=== PATIENT | male | born 1945 | race Caucasian/White ===

== ENCOUNTER 2018-04-06 11:53 | Emergency (ER) | payer OTHER, SELFPAY ==
[2018-04-06 12:03] VITALS: BP 139/75; PULSE 75; RESP 17; TEMP 36.9; O2SAT 99
--- NOTE | 2018-04-06 12:22 | ED_ITS ---
HPI - Extremity Injury (Lower) <DRAGAN Hi-BC - Last Filed: 04/06/18 13:03> General Chief Complaint: Extremity Injury, Lower Stated Complaint: INFECTED TOE RIGHT FOOT Time Seen by Provider: 04/06/18 12:05 Source: patient Mode of arrival: ambulatory Limitations: no limitations History of Present Illness HPI Narrative: Patient is a 72-year-old male former smoker who presents with a chief complaint of infection of his right 2nd toe. He states he has a history of cellulitis at that location, gets antibiotics it clears up about 3 days. He has a history of blood sugar problems but denies any diabetes. He denies any fevers, nausea, vomiting, diarrhea. He denies any trauma to the area, but states that is where this toe digs into his shoe upon ambulation. Related Data Home Medications Medication Instructions Recorded Confirmed CA PANTOTHENATE/FOLIC ACID/VIT 1 tab PO QDAY #0 tab 11/19/12 (MULTIVITAMIN) PRAZOSIN HCL (PRAZOSIN) 5 mg PO TID #0 11/19/12 sertraline 100 mg PO QDAY #0 tab 11/19/12 zolpidem 10 mg PO HS #0 tab 11/19/12 Previous Rx's Medication Instructions Recorded cephalexin 500 mg PO QID #40 cap 04/06/18 Allergies Allergy/AdvReac Type Severity Reaction Status Date / Time No Known Drug Allergies Allergy Verified 04/06/18 12:29 Review of Systems <DRAGAN Hi-BC - Last Filed: 04/06/18 13:03> Review of Systems GENERAL: Denies chills, fatigue, malaise, fever, sweats. HEENT: Denies sinus pain, ear pain, sore throat, difficulty swallowing, dizziness. RESPIRATORY: Denies dyspnea, cough, wheezing, hemoptysis, sputum. CARDIOVASCULAR: Denies chest pain, palpitations, orthopnea, edema, GASTROINTESTINAL: Denies nausea, vomiting, abdominal pain, diarrhea, constipation, melena. : Denies dysuria, frequency, incontinence, hematuria, urinary retention. MUSCULOSKELETAL: denies weakness, joint pain, or bony pain SKIN: See HPI NEUROLOGIC: Denies weakness, headache, numbness, change in speech, confusion, seizures, incoordination. PSYCHIATRIC: No concerning psychosocial issues. 12 point review of systems is negative except for those stated above Exam <CORONA Hi - Last Filed: 04/06/18 13:03> Narrative Exam Narrative: GENERAL: This is a well-nourished, well-developed patient, no acute distress HEAD: Atraumatic. Normocephalic. No temporal or scalp tenderness. EYES: Pupils equal round and reactive. Extraocular motions intact. No scleral icterus. No injection or drainage. ENT: Nose without bleeding, purulent drainage or septal hematoma. Throat without erythema, tonsillar hypertrophy or exudate. Uvula midline. Airway patent. NECK: Trachea midline. No JVD or lymphadenopathy. Supple, nontender, no meningeal signs. CARDIOVASCULAR: Regular rate and rhythm without murmurs, gallops, or rubs. RESPIRATORY: Clear to auscultation. Breath sounds equal bilaterally. No wheezes , rales, or rhonchi. GASTROINTESTINAL: Abdomen soft, non-tender, nondistended. No hepato-splenomegaly , or palpable masses. No guarding. EXTREMITIES: No clubbing, cyanosis, or edema. No joint tenderness, effusion, or edema noted. BACK: Nontender without deformity or crepitance. No flank tenderness. NEURO: AOx3. SKIN: erythema throughout 2nd digit right foot. No noted injury abrasion laceration to 2nd toe right foot. Nails intact. Diffuse erythema noted on anterior aspect foot Approximately 4 cm beyond base of toe. Capillary refill is intact. Pedal pulses intact right foot Initial Vital Signs Initial Vital Signs: Vital Signs Temperature 98.4 F 04/06/18 12:03 Pulse Rate 75 04/06/18 12:03 Respiratory Rate 17 04/06/18 12:03 Blood Pressure 139/75 04/06/18 12:03 Pulse Oximetry 99 04/06/18 12:03 <Fred Workman DO - Last Filed: 04/06/18 13:24> Initial Vital Signs Initial Vital Signs: Vital Signs Temperature 98.4 F 04/06/18 12:03 Pulse Rate 75 04/06/18 12:03 Respiratory Rate 17 04/06/18 12:03 Blood Pressure 139/75 04/06/18 12:03 Pulse Oximetry 99 04/06/18 12:03 Course <CORONA Hi - Last Filed: 04/06/18 13:03> Vital Signs - 8 hr 04/06/18 12:03 Temperature 98.4 F Pulse Rate 75 Respiratory Rate 17 Blood Pressure 139/75 Pulse Oximetry 99 <Fred Workman DO - Last Filed: 04/06/18 13:24> Vital Signs - 8 hr 04/06/18 12:03 Temperature 98.4 F Pulse Rate 75 Respiratory Rate 17 Blood Pressure 139/75 Pulse Oximetry 99 MDM - Extremity Injury (Lower) <DRAGAN Hi-BC - Last Filed: 04/06/18 13:03> MDM Narrative Medical decision making narrative: Patient is a 72-year-old male who presents with chief complaint of infected toe on his right foot. His exam is consistent with cellulitis given the erythema as well as his history. I will initiate treatment with cephalexin. I discussed at length return precautions of fever, nausea vomiting diarrhea or spreading erythema after a few doses of the antibiotic. Patient has no questions or concerns upon discharge. Discharge Plan Departure Patient Disposition: Home Clinical Impression: Cellulitis Discharge Date/Time: 04/06/18 12:57 Interventions: ED Discharge Assessment Last Done: 04/06/18 12:57 Instructions: DI for Cellulitis -- Adult Activity Restrictions/Additional Instructions: I am starting you on an antibiotic for the infection in your toe. Please monitor for spreading redness, fever vomiting diarrhea or signs of systemic illness. Please rest your foot. Please come back to emergency department for any acute concerns and follow up with primary care provider need be. Prescriptions: New cephalexin 500 mg capsule 500 mg PO QID Qty: 40 RF: 0 No Action PRAZOSIN HCL (PRAZOSIN) 5 mg PO TID Qty: 0 RF: 0 sertraline 100 MG tablet 100 mg PO QDAY Qty: 0 RF: 0 zolpidem 10 MG tablet 10 mg PO HS Qty: 0 RF: 0 CA PANTOTHENATE/FOLIC ACID/VIT (MULTIVITAMIN) 1 tab PO QDAY Qty: 0 RF: 0 Referrals: Daquan Temple [Primary Care Provider] - <Fred Workman DO - Last Filed: 04/06/18 13:24> Cosign ED Attending Cosignature Attestation: I was available for consultation during this patient's emergency department encounter
== END 2018-04-06 12:57 | disposition home or self-care (01) ==
PROVIDERS: Emergency Provider Nurse Practitioner Family; Family Provider Internal Medicine; PCP Internal Medicine
DX: L03.031 Cellulitis of right toe (principal)
CPT/HCPCS: 99282

== ENCOUNTER → 2019-06-06 12:11 | Outpatient (CLI) | payer OTHER, SELFPAY ==
[2019-06-06 13:01] LABS: Add Manual Diff / Slide Review NO; Basophils Absolute Auto 100 /uL (0-100); Basophils Percent Auto 1.1 % (0-2); Eosinophils Absolute Auto 300 /uL (0-450); Eosinophils Percent Auto 3.7 % (2-4); Hematocrit 44.2 % (41-53); Hemoglobin 14.9 g/dL (13.5-17.5); Lymphocytes Absolute Auto 1900 /uL (1100-4500); Lymphocytes Percent Auto 21.3 % (25-40); Mean Corpuscular HGB Conc 33.7 % (30-36); Mean Corpuscular Volume 88.9 fL (80-100); Monocytes Absolute Auto 800 /uL (0-900); Monocytes Percent Auto 8.9 % (3-14); Neutrophils Absolute Auto 5600 /uL (1500-7000); Platelet Count 174 X10^3/uL (150-400); Red Blood Cell Count 4.97 X10^6/uL (4.5-5.9); Red Cell Distribution Width 13.9 % (11.6-14.8); White Blood Cell Count 8.7 X10^3/uL (4.5-11.0)
[2019-06-06 13:09] LABS: Hemoglobin A1C% w Est Avg Glu 6.1 % (4.0-6.0)
[2019-06-06 13:16] LABS: Alanine Aminotransferase 29 IU/L (<50); Albumin 4.6 g/dL (3.5-5.0); Albumin Globulin Ratio 1.5 (1.0-2.8); Alkaline Phosphatase 55 U/L (38-126); Aspartate Aminotransferase 33 IU/L (17-59); Blood Urea Nitrogen 15 mg/dL (9-20); Carbon Dioxide 27 mmol/L (22-32); Chloride 104 mmol/L (98-107); Cholesterol 184 mg/dL (140-199); Estimated Glomerular Filt Rate > 60.0 mL/min (>60); Glucose 165 mg/dL (80-110); HDL Cholesterol 35 mg/dL (40-60); HEMOLYSIS 15 (0-50); LDL Cholesterol Calculated 110 mg/dL (<100); Potassium 4.7 mmol/L (3.4-5.1); Sodium 141 mmol/L (137-145); Total Protein 7.6 g/dL (6.3-8.2); Triglycerides 196 mg/dL (35-150)
== END ==
PROVIDERS: Family Provider Internal Medicine; Referring Provider Family Medicine; Visit Provider Family Medicine
DX: Z76.89 Persons encountering health services in other specified circumstances (principal)
CPT/HCPCS: 36415; 80053; 80061; 83036; 85025

== ENCOUNTER 2020-06-15 11:58 | Emergency (ER) | payer OTHER, SELFPAY ==
[2020-06-15] VITALS (7 sets, daily range): BP systolic 109–131; BP diastolic 57–71; PULSE 91–104; RESP 16–28; TEMP 36.9; O2SAT 89–97; BMI 27.9
--- NOTE | 2020-06-15 12:36 | ED_ITS ---
HPI - Arrhythmia/Palpitations General Chief Complaint: Arrhythmia/Palpitations Stated Complaint: heart rhythm is going crazy Time Seen by Provider: 06/15/20 12:18 Source: patient Mode of arrival: Ambulatory Limitations: no limitations History of Present Illness HPI narrative: Patient is a 74-year-old male here for evaluation of what he thinks his palpitations. He also states that he has not been able to eat or dr ink very much over the past several weeks/month. He states he is feeling full early. Does feel like his abdomen is distended. He states that all the symptoms started after he received his 2nd COVID vaccine. He was told that he could potentially feel abnormal afterwards so he ?waited some time ?and then called his primary doctor yesterday who told him to come to the emergency department for evaluation. He is not having any chest pain but states that he does feel like his heart is beating fast. No urinary symptoms. Related Data Home Medications Medication Instructions Recorded Confirmed CA PANTOTHENATE/FOLIC ACID/VIT 1 tab PO QDAY #0 tab 11/19/12 (MULTIVITAMIN) PRAZOSIN HCL (PRAZOSIN) 5 mg PO TID #0 11/19/12 sertraline 100 mg PO QDAY #0 tab 11/19/12 zolpidem 10 mg PO HS #0 tab 11/19/12 Previous Rx's Medication Instructions Recorded cephalexin 500 mg PO QID #40 cap 04/06/18 Allergies Allergy/AdvReac Type Severity Reaction Status Date / Time No Known Drug Allergies Allergy Verified 06/15/20 12:14 Review of Systems Constitutional Constitutional: Denies fever(s) and Denies headache(s) ENT Ears, Nose, Mouth, and Throat: Denies vertigo, Denies dizziness and Denies headache(s) Cardiovascular Cardiovascular: Denies chest pain, Denies syncope, Reports rapid heart rate, Reports irregular heart rhythm, Denies lightheadedness and Denies dyspnea Respiratory Respiratory: Denies cough and Denies dyspnea Gastrointestinal Gastrointestinal: Reports abdominal pain, Denies change in bowel habits, Reports nausea and Denies vomiting Genitourinary Genitourinary: Denies dysuria Genitourinary: Denies dysuria Musculoskeletal Musculoskeletal: Denies arthralgias and Denies myalgias Integumentary/Breasts Skin/Breast: Denies rash Neurologic Neurologic: Denies behavioral changes, Denies vertigo, Denies dizziness, Denies syncope and Denies headache(s) Psychiatric Psychiatric: Reports anxiety and Denies behavioral changes Hematologic/Lymphatic On Anticoagulants: No Allergic/Immunologic Allergic/Immunologic: Denies urticaria Patient History Medical History PTSD (post-traumatic stress disorder) Social History Smoking Status: Never smoker Smoking Status: Never smoker alcohol intake frequency: other Substance Use Type: does not use Exam Initial Vital Signs Initial Vital Signs: Vital Signs Temperature 98.4 F 06/15/20 12:10 Pulse Rate 100 H 06/15/20 12:10 Respiratory Rate 16 06/15/20 12:10 Blood Pressure 131/71 06/15/20 12:10 Pulse Oximetry 96 06/15/20 12:10 Const General: cooperative and comfortable Limitations: mental status not altered HENMT Head: normal to inspection and normocephalic Resp Effort & Inspection: normal respiratory effort Auscultation: clear to auscultation bilaterally Cardio Rate: regular rate Rhythm: regular rhythm GI Inspection: distended Palpation: guarding and tender Skin Lesions: no lesions Rashes: no rashes Neuro General: patient alert and patient awake Cognition: normal cognition Speech: speech normal Extrem General: normal to inspection and capillary refill normal Psych Appearance: grossly normal Course Orders Ordered: ED Orders 06/15/20 12:18 EKG-12 Lead Stat 06/15/20 12:38 Complete Blood Count AUTO DIFF Stat Comprehensive Metabolic Panel Stat Lipase Stat 06/15/20 13:21 CT abdomen pelvis w con Stat Discontinued Medications Sodium Chloride (Normal Saline 0.9%) 1,000 mls @ 1,000 mls/hr IV BOLUS ONE Stop: 06/15/20 13:35 Last Infusion: 06/15/20 14:05 Dose: 0 mls/hr Documented by: Admin: 06/15/20 12:46 Dose: 1,000 mls/hr Documented by: SHAKIRA Vital Signs Vital signs: Vital Signs - 8 hr 06/15/20 12:10 06/15/20 12:11 06/15/20 12:30 Temperature 98.4 F Pulse Rate 100 H 104 H 93 H Respiratory Rate 16 18 Blood Pressure 131/71 131/71 120/57 L Pulse Oximetry 96 97 89 L 06/15/20 13:00 06/15/20 13:23 06/15/20 13:30 Temperature Pulse Rate 91 H 92 H 92 H Respiratory Rate 16 20 19 Blood Pressure 109/61 109/63 114/62 Pulse Oximetry 92 97 92 06/15/20 14:00 Temperature Pulse Rate 93 H Respiratory Rate 28 H Blood Pressure 115/62 Pulse Oximetry 92 MDM - Arrhythmia/Palpitations Lab Data Attestation: I reviewed the patient's lab results. Result diagrams: 06/15/20 12:38 06/15/20 12:38 Labs: Lab Results 06/15/20 06/15/20 Range/Units 12:38 12:38 WBC 11.0 (4.5-11.0) X10^3/uL RBC 4.84 (4.5-5.9) X10^6/uL Hgb 14.3 (13.5-17.5) g/dL Hct 43.5 (41-53) % MCV 89.9 (80-100) fL MCH 29.6 (26-34) PG MCHC 32.9 (30-36) % RDW 15.2 H (11.6-14.8) % Plt Count 186 (150-400) X10^3/uL Neut % (Auto) 83.6 H (50-75) % Lymph % (Auto) 8.4 L (25-40) % [place] % (Auto) 5.9 (3-14) % Eos % (Auto) 1.0 L (2-4) % Baso % (Auto) 1.1 (0-2) % Neut # (Auto) 9200 H (2439-0813) /uL Lymph # (Auto) 900 L (3629-5003) /uL [place] # (Auto) 700 (0-900) /uL Eos # (Auto) 100 (0-450) /uL Baso # (Auto) 100 (0-100) /uL Sodium 138 (137-145) mmol/L Potassium 4.8 (3.4-5.1) mmol/L Chloride 102 (98-107) mmol/L Carbon Dioxide 23 (22-32) mmol/L BUN 10 (9-20) mg/dL Creatinine 1.00 (0.66-1.25) mg/dL Estimated GFR > 60.0 (>60) mL/min BUN/Creatinine Ratio 10.0 (6-22) Glucose 111 H (80-110) mg/dL Calcium 10.4 H (8.4-10.2) mg/dL Total Bilirubin 2.2 H (0.2-1.3) mg/dL AST 151 H (17-59) IU/L ALT 49 (<50) IU/L Alkaline Phosphatase 420 H (38-126) U/L Total Protein 7.7 (6.3-8.2) g/dL Albumin 4.2 (3.5-5.0) g/dL Globulin 3.5 (1.7-4.1) g/dL Albumin/Globulin Ratio 1.2 (1.0-2.8) Lipase 132 (23-300) U/L Imaging Data CT scan - abdomen/pelvis: Radiologist's Impresson: [address] [id number] Scan ReportSigned Patient: Ron Enamorado RMR#: [id number]: 5Acct:[id number]/Sex: 74 / MDate of Service: 06/15/20Loc: EDAccession Number: [id number] Procedure: CT abdomen pelvis w con Ordering Provider: Fred Workman D.O. PROCEDURE: CT ABDOMEN PELVIS W CON INDICATIONS: Feeling full early, abdominal distension TECHNIQUE: After the administration of intravenous contrast, 5 mm thick sections acquired from the diaphragm to the symphysis. 5 mm coronal and sagittal reformats were acquired. For radiation dose reduction, the following was used: automated exposure control, adjustment of mA and/or kV according to patient size. COMPARISON: None. FINDINGS: Image quality: Excellent. ABDOMEN: Lung bases: Lung bases are clear. Heart size is normal. Solid organs: The liver is enlarged and has innumerable metastatic lesions. Index lesions are as follows: Right lobe confluent lesion axial image 34/2 and coronal lesion 28/4, measuring 5.1 x 4.5 x 4.5 cm. Lateral segment left lobe: images 18/2 in 24/4: 2.7 x 2.7 x 3.1 cm. Posterior segment right lobe lobe: images 49/2 and 23/4: 3.6 x 5.4 x 3.9 cm. Numerous other liver lesions are present. Gallbladder is unremarkable. Biliary system is non dilated. Pancreas enhances normally. Spleen is normal in size and enhancement. No adrenal nodules. Kidneys demonstrate normal size and enhancement, without hydronephrosis. Peritoneum and bowel: Cannot exclude a lesion involving the cecum. This is not definite. Small amount of free peritoneal fluid. Extensive sigmoid diverticulosis. Nodes and vessels: No retroperitoneal or mesenteric adenopathy by size criteria. Aorta and inferior vena cava are normal in size. Miscellaneous: No ventral hernias. PELVIS: Genitourinary: Bladder wall thickness is normal. Miscellaneous: Right inguinal hernia containing fat and fluid. Bones: Question Schmorl's nodes at multiple levels versus lytic lesions. No vertebral body compression fractures. IMPRESSION: 1. Extensive hepatic metastatic disease. 2. Possible lytic metastatic bony disease versus numerous Schmorl's nodes. Consider lumbar spine MRI for further evaluation. 3. Cannot exclude a cecal primary. This is not definite. Dictated by: Hardik Velasquez M.D. on 06/15/2020 at 13:30 Approved by: Hardik Velasquez M.D. on 06/15/2020 at 13:40 ECG Data Attestation: I personally reviewed and interpreted this ECG as follows: Prior ECG tracings: not available for review Interpretation: Sinus rhythm Ventricular rate of 95 First degree AV block peer interval to 1 6 millisecond Normal axis Normal QRS Normal QTC No ST T wave changes MDM Narrative Medical decision making narrative: Had no ectopy while on the monitor here. His EKG is unremarkable. During our initial discussion he is also having quite a bit of discomfort with eating and becoming full very early and has had quite a bit of weight loss over the past several weeks or months. On exam his abdomen was distended and tender to palpation. CT scan is concerning for metastatic liver disease. Had a long discussion with him regarding these findings. Informed him that we were concerned about the findings on the CT scan and that he needed to talk with his primary doctor about further workup. I expressed multiple times my concern about this and he did expressed understanding. No further workup needed in the emergency department. He was given return precautions and follow-up instructions. He expressed understanding and agreement. Discharge Plan Departure Patient Disposition: Home Clinical Impression: Lesion of liver, Heart palpitations Activity Restrictions/Additional Instructions: Your CT scan today is concerning for potential cancer involving your liver and your colon. This does require further evaluation for definitive diagnosis. I recommend that you contact your primary doctor in tell his office that you were seen here in the emergency department and that a CT scan did show multiple lesions in your liver and our concerns in that you need to schedule a follow-up appointment. I recommend that you eat and drink like we discussed. Continue all of your medications as directed. Return to the emergency department for any new or worsening symptoms Prescriptions: No Action PRAZOSIN HCL (PRAZOSIN) 5 mg PO TID Qty: 0 RF: 0 sertraline 100 MG tablet 100 mg PO QDAY Qty: 0 RF: 0 zolpidem 10 MG tablet 10 mg PO HS Qty: 0 RF: 0 CA PANTOTHENATE/FOLIC ACID/VIT (MULTIVITAMIN) 1 tab PO QDAY Qty: 0 RF: 0 cephalexin 500 mg capsule 500 mg PO QID Qty: 40 RF: 0
[2020-06-15 12:46] LABS: Add Manual Diff / Slide Review NO; Basophils Absolute Auto 100 /uL (0-100); Basophils Percent Auto 1.1 % (0-2); Eosinophils Absolute Auto 100 /uL (0-450); Hematocrit 43.5 % (41-53); Hemoglobin 14.3 g/dL (13.5-17.5); Lymphocytes Absolute Auto 900 /uL (1100-4500); Lymphocytes Percent Auto 8.4 % (25-40); Mean Corpuscular HGB Conc 32.9 % (30-36); Mean Corpuscular Hemoglobin 29.6 PG (26-34); Mean Corpuscular Volume 89.9 fL (80-100); Monocytes Absolute Auto 700 /uL (0-900); Monocytes Percent Auto 5.9 % (3-14); Neutrophils Absolute Auto 9200 /uL (1500-7000); Neutrophils Percent Auto 83.6 % (50-75); Platelet Count 186 X10^3/uL (150-400); Red Blood Cell Count 4.84 X10^6/uL (4.5-5.9); Red Cell Distribution Width 15.2 % (11.6-14.8)
[2020-06-15] MEDS: SODIUM CHLORIDE 0.9% 1,000 ML 1000 ML IV (12:46)
[2020-06-15 13:01] LABS: Alanine Aminotransferase 49 IU/L (<50); Albumin 4.2 g/dL (3.5-5.0); Albumin Globulin Ratio 1.2 (1.0-2.8); Alkaline Phosphatase 420 U/L (38-126); Aspartate Aminotransferase 151 IU/L (17-59); Bilirubin Total 2.2 mg/dL (0.2-1.3); Blood Urea Nitrogen 10 mg/dL (9-20); Calcium 10.4 mg/dL (8.4-10.2); Carbon Dioxide 23 mmol/L (22-32); Chloride 102 mmol/L (98-107); Estimated Glomerular Filt Rate > 60.0 mL/min (>60); Globulin 3.5 g/dL (1.7-4.1); Glucose 111 mg/dL (80-110); Lipase 132 U/L (23-300); Sodium 138 mmol/L (137-145); Total Protein 7.7 g/dL (6.3-8.2)
[2020-06-15 13:02] LABS: HEMOLYSIS 60 (0-50); Potassium 4.8 mmol/L (3.4-5.1)
--- NOTE | 2020-06-15 13:02 | PC.NURSE ---
Pt reports experiencing palpitations and anorexia since end of April. appears to have some abd distension and tenderness in the RLQ. denies fever, CP, SOB. Has not been eating or drinking adequately due to feeling full and nauseous and appears orally dry. states he can only tolerate sips of Clamato juice at home. IV placed and IVF infusing. Wet oral swab given. Awaiting CT scan
--- NOTE | 2020-06-15 13:21 | DI.CT.S_ITS ---
PROCEDURE: CT ABDOMEN PELVIS W CON INDICATIONS: Feeling full early, abdominal distension TECHNIQUE: After the administration of intravenous contrast, 5 mm thick sections acquired from the diaphragm to the symphysis. 5 mm coronal and sagittal reformats were acquired. For radiation dose reduction, the following was used: automated exposure control, adjustment of mA and/or kV according to patient size. COMPARISON: None. FINDINGS: Image quality: Excellent. ABDOMEN: Lung bases: Lung bases are clear. Heart size is normal. Solid organs: The liver is enlarged and has innumerable metastatic lesions. Index lesions are as follows: Right lobe confluent lesion axial image 34/2 and coronal lesion 28/4, measuring 5.1 x 4.5 x 4.5 cm. Lateral segment left lobe: images 18/2 in 24/4: 2.7 x 2.7 x 3.1 cm. Posterior segment right lobe lobe: images 49/2 and 23/4: 3.6 x 5.4 x 3.9 cm. Numerous other liver lesions are present. Gallbladder is unremarkable. Biliary system is non dilated. Pancreas enhances normally. Spleen is normal in size and enhancement. No adrenal nodules. Kidneys demonstrate normal size and enhancement, without hydronephrosis. Peritoneum and bowel: Cannot exclude a lesion involving the cecum. This is not definite. Small amount of free peritoneal fluid. Extensive sigmoid diverticulosis. Nodes and vessels: No retroperitoneal or mesenteric adenopathy by size criteria. Aorta and inferior vena cava are normal in size. Miscellaneous: No ventral hernias. PELVIS: Genitourinary: Bladder wall thickness is normal. Miscellaneous: Right inguinal hernia containing fat and fluid. Bones: Question Schmorl's nodes at multiple levels versus lytic lesions. No vertebral body compression fractures. IMPRESSION: 1. Extensive hepatic metastatic disease. 2. Possible lytic metastatic bony disease versus numerous Schmorl's nodes. Consider lumbar spine MRI for further evaluation. 3. Cannot exclude a cecal primary. This is not definite. Dictated by: Hardik Velasquez M.D. on 06/15/2020 at 13:30 Approved by: Hardik Velasquez M.D. on 06/15/2020 at 13:40
== END 2020-06-15 14:31 | disposition home or self-care (01) ==
PROVIDERS: Emergency Provider Emergency Medicine; Family Provider Internal Medicine
DX: K76.89 Other specified diseases of liver (principal); R00.2 Palpitations
CPT/HCPCS: 36415; 74177; 80053; 83690; 85025; 93005; 96360; 99284; Q9967